=== PATIENT | male | born 1965 | race Hispanic/Latino ===

== ENCOUNTER 2022-07-20 14:01 | Inpatient (IN) | payer OTHER ==
[~2022-07-20] VITALS: Ht 152.4 cm; Wt 63.8 kg
[2022-07-20 15:27] LABS: BASOPHILS % (AUTO) 0.4 % (0.0-5.0); EOSINOPHILS % (AUTO) 1.9 % (0.0-8.0); HEMATOCRIT 24.6 % (42-54); LYMPHOCYTES % (AUTO) 12.5 % (21.0-51.0); MEAN CORPUSCULAR HEMOGLOBIN 31.9 pg (27.0-33.0); MEAN CORPUSCULAR HGB CONC 33.7 g/dL (32.0-36.0); MEAN CORPUSCULAR VOLUME 94.6 fL (79-99); NEUTROPHILS % (AUTO) 68.5 % (40.0-77.0); PLATELET COUNT (AUTO) 130 K/uL (130-400); RED CELL DISTRIBUTION WIDTH 18.1 % (11.0-15.5)
[2022-07-20 15:38] LABS: CREATININE 1.5 mg/dL (0.5-1.5); POTASSIUM 4.4 mmol/L (3.5-5.1)
[2022-07-20 15:48] LABS: ALBUMIN 1.9 g/dL (3.5-5.0); TOTAL PROTEIN, SERUM 6.2 g/dL (6.0-8.3)
[2022-07-20] MEDS ORDERED: IOHEXOL 350 MG/ML 100ML INFUS..BTL IV ONE (16:24)
[2022-07-20] MEDS ORDERED: MORPHINE 2 MG SYG IV PRN (19:30)
[2022-07-20] MEDS ORDERED: ONDANSETRON 4MG INJ IV PRN (19:30)
[2022-07-20] MEDS ORDERED: ACETAMINOPHEN 325 MG TAB PO PRN ×2 (19:30)
[2022-07-20] MEDS ORDERED: HYDROMORPHONE 1 MG INJ IV PRN (19:30)
[2022-07-20] MEDS: LACTULOSE 20 GM/30 ML UDCUP PO SCH (19:31)
[2022-07-20] MEDS ORDERED: PANTOPRAZOLE 40 MG/VIAL IVP SCH (21:00)
[2022-07-20] MEDS ORDERED: FUROSEMIDE 20MG VIAL IV SCH (23:30)
[2022-07-20 23:56] LABS: HEMOGLOBIN A1C 4.1 % (4.0-6.0)
[2022-07-21] VITALS (13 sets, daily range): BP systolic 91–109; BP diastolic 57–70
[2022-07-21] MEDS: MULTIVITAMIN TABLET PO SCH ×2 (01:12→22:58)
[2022-07-21] MEDS: LACTULOSE 20 GM/30 ML UDCUP PO SCH ×4 (01:12→19:31)
[2022-07-21 04:37] LABS: BASOPHILS % (AUTO) 0.4 % (0.0-5.0); EOSINOPHILS % (AUTO) 2.8 % (0.0-8.0); LYMPHOCYTES % (AUTO) 21.1 % (21.0-51.0); MEAN CORPUSCULAR HEMOGLOBIN 32.7 pg (27.0-33.0); MEAN CORPUSCULAR VOLUME 96.3 fL (79-99); MONOCYTES % (AUTO) 13.1 % (3.0-13.0); NEUTROPHILS % (AUTO) 61.8 % (40.0-77.0); PLATELET COUNT (AUTO) 83 K/uL (130-400); RED BLOOD CELL COUNT(AUTO) 2.14 MIL/uL (4.50-6.20); RED CELL DISTRIBUTION WIDTH 17.6 % (11.0-15.5)
[2022-07-21 04:47] LABS: HEMATOCRIT 20.6 % (42-54)
[2022-07-21 05:08] LABS: ALANINE AMINOTRANSFERASE 21 U/L (12-78); ALBUMIN 1.4 g/dL (3.5-5.0); ASPARTATE AMINOTRANSFERASE 27 U/L (10-37); CARBON DIOXIDE 21 mmol/L (21-32); CHLORIDE 99 mmol/L (101-111); CREATININE 1.2 mg/dL (0.5-1.5); GLOMERULAR FILTR. RATE CALC 66 mL/min (>60); GLUCOSE,RANDOM 74 mg/dL (70-105); POTASSIUM 3.9 mmol/L (3.5-5.1); SODIUM SERUM 126 mmol/L (136-145); UREA NITROGEN, BLOOD 14 mg/dL (7-18)
[2022-07-21] MEDS: PANTOPRAZOLE 40 MG/VIAL IVP SCH ×2 (09:00→19:32)
[2022-07-21 09:05] LABS: INR 1.3 (0.85-1.15)
[2022-07-21 09:06] LABS: PARTIAL THROMBOPLASTIN TIME 35.9 SEC (26.3-35.5)
[2022-07-21] MEDS: FUROSEMIDE 20MG VIAL IV SCH ×2 (15:53→22:57)
[2022-07-21] MEDS: SPIRONOLACTONE 25 MG TAB PO SCH ×2 (15:53→19:31)
[2022-07-21 16:33] LABS: SPECIMENTYPE,BODY FLUID ASCITES
[2022-07-21 16:34] LABS: APPEARANCE BODY FLUID SLIGHTLY CLOUDY (CLEAR); COLOR,BODY FLUID YELLOW (LT YELLOW); TOTAL VOLUME,BODY FLUID 3500 mL
[2022-07-21 16:35] LABS: BODY FLUID WBC 528 /cu. mm.
[2022-07-21 16:36] LABS: BODY FLUID RBC 322 /cu. mm.
[2022-07-21 18:27] LABS: BF LYMPHOCYTE 4 %; BF MONOCYTE 6 %; BF OTHER CELLS 2
[2022-07-22] MEDS: LACTULOSE 20 GM/30 ML UDCUP PO SCH ×2 (01:30→08:23)
[2022-07-22 03:40] VITALS: BP 105/67
[2022-07-22 03:59] LABS: BASOPHILS % (AUTO) 0.4 % (0.0-5.0); EOSINOPHILS % (AUTO) 3.4 % (0.0-8.0); HEMATOCRIT 24.3 % (42-54); LYMPHOCYTES % (AUTO) 28.4 % (21.0-51.0); MEAN CORPUSCULAR HEMOGLOBIN 31.2 pg (27.0-33.0); MEAN CORPUSCULAR HGB CONC 34.2 g/dL (32.0-36.0); MEAN CORPUSCULAR VOLUME 91.4 fL (79-99); MONOCYTES % (AUTO) 13.8 % (3.0-13.0); NEUTROPHILS % (AUTO) 53.4 % (40.0-77.0); PLATELET COUNT (AUTO) 103 K/uL (130-400); RED BLOOD CELL COUNT(AUTO) 2.66 MIL/uL (4.50-6.20); RED CELL DISTRIBUTION WIDTH 18.6 % (11.0-15.5)
[2022-07-22 04:19] LABS: ALBUMIN 1.5 g/dL (3.5-5.0); CREATININE 1.2 mg/dL (0.5-1.5); MAGNESIUM 1.8 mg/dL (1.80-2.40); POTASSIUM 3.9 mmol/L (3.5-5.1); TOTAL PROTEIN, SERUM 5.3 g/dL (6.0-8.3)
[2022-07-22 08:00] VITALS: BP 112/75
[2022-07-22] MEDS: PANTOPRAZOLE 40 MG/VIAL IVP SCH (08:23)
[2022-07-22] MEDS: SPIRONOLACTONE 25 MG TAB PO SCH (08:23)
== END 2022-07-22 10:20 | disposition home or self-care (01) | DRG 432 ==
LOC: EDH 14:01 → EDHIP 14:02 → 4AH 07-21 01:56
PROVIDERS: ADMIT Hospitalist; ATTEND Hospitalist
PROC: 30233N1 Transfusion of Nonautologous Red Blood Cells into Peripheral Vein, Percutaneous Approach (ICD-10-PCS; principal; 2022-07-21)
PROC: 0W9G3ZZ Drainage of Peritoneal Cavity, Percutaneous Approach (ICD-10-PCS; 2022-07-21)
DX: K70.31 Alcoholic cirrhosis of liver with ascites (principal); E43 Unspecified severe protein-calorie malnutrition; E87.1 Hypo-osmolality and hyponatremia; E87.70 Fluid overload, unspecified; D64.9 Anemia, unspecified; D69.6 Thrombocytopenia, unspecified; R62.7 Adult failure to thrive; Z79.899 Other long term (current) drug therapy; Z91.14 Patient's other noncompliance with medication regimen; Z68.27 Body mass index [BMI] 27.0-27.9, adult
CPT/HCPCS: 36415; 49083; 74177; 80053; 82140; 82746; 83036; 83690; 83735; 84425; 84484; 85025; 85610; 85730; 86850; 86900; 86901; 86923; 87071; 87205; 89051; C1729; C9113; G0378; J1940; P9016; Q9967

== ENCOUNTER 2022-08-11 12:14 | Emergency (ER) | payer OTHER ==
[~2022-08-11] VITALS: Ht 162.6 cm; Wt 64.4 kg
[2022-08-11 13:50] LABS: BASOPHILS % (AUTO) 0.6 % (0.0-5.0); EOSINOPHILS % (AUTO) 3.7 % (0.0-8.0); HEMATOCRIT 24.9 % (42-54); LYMPHOCYTES % (AUTO) 16.1 % (21.0-51.0); MEAN CORPUSCULAR HEMOGLOBIN 33.5 pg (27.0-33.0); MEAN CORPUSCULAR HGB CONC 33.3 g/dL (32.0-36.0); MEAN CORPUSCULAR VOLUME 100.4 fL (79-99); MONOCYTES % (AUTO) 16.3 % (3.0-13.0); NEUTROPHILS % (AUTO) 62.9 % (40.0-77.0); PLATELET COUNT (AUTO) 86 K/uL (130-400); RED BLOOD CELL COUNT(AUTO) 2.48 MIL/uL (4.50-6.20); RED CELL DISTRIBUTION WIDTH 19.9 % (11.0-15.5); WHITE BLOOD COUNT (AUTO) 5.5 K/uL (4.8-10.8)
[2022-08-11 14:01] LABS: INR 1.17 (0.85-1.15); PROTHROMBIN TIME 12.6 SEC (9.6-11.6)
[2022-08-11 14:10] LABS: CREATININE 1.4 mg/dL (0.5-1.5)
[2022-08-11 14:15] LABS: ALBUMIN 2.2 g/dL (3.5-5.0); TOTAL PROTEIN, SERUM 5.8 g/dL (6.0-8.3)
[2022-08-11 14:58] LABS: APPEARANCE,URINE CLOUDY (CLEAR); BILIRUBIN,URINE NEGATIVE (NEGATIVE); COLOR,URINE YELLOW (YELLOW); GLUCOSE, URINE (UA) NEGATIVE (NEGATIVE); KETONES,URINE NEGATIVE (NEGATIVE); LEUKOCYTE ESTERASE ,URINE 25 Leu/uL (NEGATIVE); NITRATE,URINE NEGATIVE (NEGATIVE); OCCULT BLOOD,URINE LARGE (NEGATIVE); PROTEIN,URINE 20 mg/dL (NEGATIVE); UROBILINOGEN,URINE 0.2 mg/dL (0.2-1.0)
[2022-08-11 15:03] LABS: BACTERIA,URINE MANY /HPF (None Seen); MUCUS,URINE RARE LPF (None Seen); RBC,URINE 51-100 /HPF (0-1); SQUAMOUS EPITHELIAL CELL,UR RARE /HPF (0-2)
[2022-08-11] MEDS ORDERED: CIPR-279 PO (15:49)
[2022-08-11 16:17] VITALS: BP 101/62
== END 2022-08-11 16:18 | disposition home or self-care (01) ==
LOC: EDH 12:14
DX: K74.60 Unspecified cirrhosis of liver (principal); R18.8 Other ascites; Z98.890 Other specified postprocedural states
CPT/HCPCS: 36415; 80053; 81001; 85025; 85610; 85730; 87077; 87088; 87186

== ENCOUNTER 2022-08-18 12:30 | Emergency (ER) | payer OTHER ==
[~2022-08-18] VITALS: Ht 162.6 cm; Wt 64.4 kg
[~2022-08-18 12:30] MED LIST: CIPR-279 PO
[2022-08-18 15:32] LABS: EOSINOPHILS % (AUTO) 4.1 % (0.0-8.0); HEMATOCRIT 23.2 % (42-54); LYMPHOCYTES % (AUTO) 19.8 % (21.0-51.0); MEAN CORPUSCULAR HEMOGLOBIN 33.5 pg (27.0-33.0); MEAN CORPUSCULAR HGB CONC 33.2 g/dL (32.0-36.0); MEAN CORPUSCULAR VOLUME 100.9 fL (79-99); MONOCYTES % (AUTO) 12.7 % (3.0-13.0); PLATELET COUNT (AUTO) 116 K/uL (130-400); WHITE BLOOD COUNT (AUTO) 5.1 K/uL (4.8-10.8)
[2022-08-18 15:44] LABS: INR 1.26 (0.85-1.15); PROTHROMBIN TIME 13.6 SEC (9.6-11.6)
[2022-08-18 15:46] LABS: PARTIAL THROMBOPLASTIN TIME 30.8 SEC (26.3-35.5)
[2022-08-18 16:00] LABS: CREATININE 1.3 mg/dL (0.5-1.5); POTASSIUM 3.5 mmol/L (3.5-5.1)
[2022-08-18 16:05] LABS: TOTAL PROTEIN, SERUM 5.4 g/dL (6.0-8.3)
[2022-08-18] MEDS ORDERED: LIDOCAINE HCL 1% 20 ML VIAL ONE (17:09)
[2022-08-18] MEDS ORDERED: ALBUMIN (HUMAN) 25% 100 ML IV STA (17:13)
[2022-08-18 18:26] VITALS: BP 124/62
== END 2022-08-18 19:22 | disposition home or self-care (01) ==
LOC: EDH 12:30
DX: R10.9 Unspecified abdominal pain (principal); Z98.890 Other specified postprocedural states
CPT/HCPCS: 99285; 96374; 76705; 71045; 84484; 80053; 82140; 85025; 85610; 85730; 36415; P9046

== ENCOUNTER 2024-08-17 09:24 | Inpatient (IN) | payer OTHER ==
[~2024-08-17] VITALS: Ht 162.6 cm; Wt 84.5 kg
[2024-08-17 10:07] LABS: BASOPHILS # (AUTO) 0.03 K/uL (0.00-0.20); BASOPHILS % (AUTO) 0.8 % (0.0-5.0); EOSINOPHILS # (AUTO) 0.15 K/uL (0.00-0.70); EOSINOPHILS % (AUTO) 4.2 % (0.0-8.0); HEMATOCRIT 24.4 % (42-54); IMMATURE GRANULOCYTE ABSOLUTE 0.01 K/uL (0-1); LYMPHOCYTES # (AUTO) 1.3 K/uL (1.0-4.8); LYMPHOCYTES % (AUTO) 35.7 % (21.0-51.0); MEAN CORPUSCULAR HEMOGLOBIN 34.7 pg (27.0-33.0); MEAN CORPUSCULAR HGB CONC 35.2 g/dL (32.0-36.0); MEAN CORPUSCULAR VOLUME 98.4 fL (79-99); MONOCYTES # (AUTO) 0.4 K/uL (0.1-1.0); MONOCYTES % (AUTO) 11.6 % (3.0-13.0); NEUTROPHILS # (AUTO) 1.7 K/uL (1.8-7.7); NEUTROPHILS % (AUTO) 47.4 % (40.0-77.0); PLATELET COUNT (AUTO) 97 K/uL (130-400); RED BLOOD CELL COUNT(AUTO) 2.48 MIL/uL (4.50-6.20); WHITE BLOOD COUNT (AUTO) 3.6 K/uL (4.8-10.8)
[2024-08-17 10:16] LABS: CREATININE 1.4 mg/dL (0.5-1.3); POTASSIUM 3.3 mmol/L (3.5-5.1)
[2024-08-17 10:17] LABS: INR 1.1 (0.85-1.15); PROTHROMBIN TIME 12.2 SEC (9.6-11.6)
[2024-08-17 10:19] LABS: PARTIAL THROMBOPLASTIN TIME 29.7 SEC (26.3-35.5)
--- NOTE | 2024-08-17 10:29 | NUR ---
TROP-89, STEPHAND MADE AWARE NO FURTHER ORDERS
--- NOTE | 2024-08-17 11:32 | ERN ---
General Chief Complaint: Abdominal Pain Stated Complaint: ABD PAIN Time Seen by MD: 09:28 History of Present Illness Initial Comments 59-year-old male came in for distended abdomen secondary to ascites. Patient otherwise has no concerns. Allergies: Coded Allergies: No Known Allergies (Unverified Allergy, Unknown, 07/20/22) Home Meds Active Scripts Ciprofloxacin HCl (Cipro) 250 Mg Tablet, 250 MG PO BID for 7 Days, #14 TAB Prov:MAURICE DIAMOND MD 08/11/22 Past Medical History Past Medical History: CAD, Constipation, High Cholesterol, Heart Disease, Hypertension, Hypothyroid, Liver Disease Medical History Other: CIRRHOSIS Past Surgical History: Other Surgical History Other: UMBILICAL HERNIA REPAIR Social History Social History: Lives with family ROS Dictation CONSTITUTIONAL: Negative except for HPI HEAD/FACE: Negative except for HPI EENT: Negative except for HPI RESPIRATORY: Negative except for HPI GASTROINTESTINAL/ABDOMINAL: Negative except for HPI GENITOURINARY: Negative except for HPI MUSCULOSKELETAL: Negative except for HPI INTEGUMENTARY: Negative except for HPI NEUROLOGICAL/PSYCH: Negative except for HPI HEMATOLOGIC/LYMPHATIC: Negative except for HPI All Systems Negative, Except as noted above. 13 point review of systems assessed and all negative except for above. Physical Exam Physical Exam Dictation Vital Signs reviewed General Appearance: Alert, oriented x 3, no acute distress, well developed, nourished. Head and Face: non-traumatic. Eyes: PERRL, pink conjunctivas, eyelid no trauma, anterior chamber with arcus senilis. Ears: Pinnas intact and no signs of trauma or erythema ear canals clear and no discharge TM no erythema Nose: No discharge, no bleeding. Oropharynx: Mouth normal, tongue pink, pharynx clear,no erythema, tonsils no exudates, no abscesses noted, mucous membrane moist Neck: Supple, non-tender, no thyromegaly, no masses, no JVD, no bruits Breast:Deferred Chest:No tenderness, no crepitus, no paradoxical movement, no retractions Lungs:Clear, well-ventilated, symmetric, no rales, no wheezing, no rhonchi, no stridor, good breath sounds bilaterally Heart: Regular rate, regular rhythm, no murmur, no gallops Vascular: no peripheral edema, Abdomen: Soft, positive bowel sounds, nondistended, no guarding, nontender, no rebound, no masses no hepatomegaly, no splenomegaly, no Macedo's sign, no hernias. Rectal: Deferred Genital: Deferred Neurological: Normal speech, motor function intact, sensory function intact Musculoskeletal: Neck nontender, full range of motion, back nontender, full range of motion, Extremities: nontender, full range of motion Skin: Color pink, dry, no turgor, no rash, no lacerations, no abrasions, no contusions. Lymphatic: Deferred Results Laboratory and Microbiology Lab and Micro Result Laboratory Tests Test 08/17/24 10:00 White Blood Count 3.6 K/uL (4.8-10.8) L Red Blood Count 2.48 MIL/uL (4.50-6.20) L Hemoglobin 8.6 g/dL (14.0-18.0) L Hematocrit 24.4 % (42-54) L Mean Corpuscular Volume 98.4 fL (79-99) Mean Corpuscular Hemoglobin 34.7 pg (27.0-33.0) H Mean Corpuscular Hemoglobin Concent 35.2 g/dL (32.0-36.0) Red Cell Distribution Width 15.0 % (11.0-15.5) Platelet Count 97 K/uL (130-400) L Mean Platelet Volume 9.8 fL (7.5-10.5) Immature Granulocyte % (Auto) 0.3 % (0-1) Neutrophils (%) (Auto) 47.4 % (40.0-77.0) Lymphocytes (%) (Auto) 35.7 % (21.0-51.0) Monocytes (%) (Auto) 11.6 % (3.0-13.0) Eosinophils (%) (Auto) 4.2 % (0.0-8.0) Basophils (%) (Auto) 0.8 % (0.0-5.0) Neutrophils # (Auto) 1.7 K/uL (1.8-7.7) L Lymphocytes # (Auto) 1.3 K/uL (1.0-4.8) Monocytes # (Auto) 0.4 K/uL (0.1-1.0) Eosinophils # (Auto) 0.15 K/uL (0.00-0.70) Basophils # (Auto) 0.03 K/uL (0.00-0.20) Absolute Immature Granulocyte (auto 0.01 K/uL (0-1) Nucleated Red Blood Cells 0.0 % (0.0-0.19) Sodium Level 144 mmol/L (136-145) Potassium Level 3.3 mmol/L (3.5-5.1) L Chloride Level 112 mmol/L (101-111) H Carbon Dioxide Level 29 mmol/L (21-32) Blood Urea Nitrogen 19 mg/dL (7-18) H Creatinine 1.4 mg/dL (0.5-1.3) H Glomerular Filtration Rate Calc 58 mL/min (>90) Random Glucose 94 mg/dL (70-105) Total Calcium 7.5 mg/dL (8.5-10.1) L Ammonia 42 umol/L (11-32) H Troponin I High Sensitivity 89 ng/L (4-75) *H MDM MDM: Differential diagnosis: Rationale: Tests considered and ordered secondary to shared decision making include: Previous outside records reviewed: Old ER visits. Risk of complication and/or morbidity or mortality of patient management: None Medications-Per medication reconciliation Need for hospitalization: Patient does meet criteria for hospitalization. Need for emergency major/minor surgery: No There are no social concerns with this patient. Prescription drug management Prescriptions will include symptomatic care Patient's prior external medical records from other ER visits were reviewed by me as indicated. Prior testing and results from previous visits were reviewed. Prior tests were taken into account with medical decision making and resource utilization, independent historian/historians were used to obtain complete medical history. I independently interpreted the test that were performed, results were reviewed by me and considered findings on radiology if ordered. Medical management and examination interpretation discussions were had by me with other qualified healthcare professionals as indicated for the patient's care. ED Course Orders Procedure Category Date Status Time Cbc With Differential LAB 08/17/24 Complete 09:37 Basic Metabolic Panel LAB 08/17/24 Complete 09:37 Pt And Ptt LAB 08/17/24 In Process 09:37 Troponin I High LAB 08/17/24 Complete Sensitivity 09:37 Ammonia LAB 08/17/24 Complete 09:57 12 Lead Ekg Tracing- EKG 08/17/24 Logged Technical 10:31 Vital Signs Date Time Temp Pulse Resp B/P (MAP) Pulse Ox O2 Delivery O2 Flow Rate FiO2 08/17/24 09:58 98.8 66 14 134/64 100 Room Air* 0 21 08/17/24 09:30 98.8 14 99 Room Air 0 DX & DISP Disposition: Inpatient Departure Impression: Primary Impression: Elevated troponin Additional Impression: Liver cirrhosis Condition: Stable Referrals: NONE (PCP) SCOTTY ROMERO MD Aug 17, 2024 11:32
--- NOTE | 2024-08-17 13:35 | HP ---
[facility] HISTORY AND PHYSICAL Date of Service: Aug 17, 2024 Time of Service: 13:16 HISTORY OF PRESENT ILLNESS: [This is a 59-year-old male with past medical history of alcoholic liver cirrhosis who presented to the emergency department with complaints of stomach bloating, bilateral lower extremity edema associated with shortness of breaths. Patient denies any chest pain or palpitations. Patient stated that we would normally get paracentesis for his liver cirrhosis in the last paracentesis that he had was about three months ago. In the emergency department, his initial vitals checked which showed temperature 98.8, respiratory rate 14, BP 134/64, O2 sat 99% on room air. Laboratory data reviewed, WBC 3.6, HGB 8.6, HCT 24.4, PLT 97, Na 144, K 3.3, Cl 112, CO2 29, BUN 19, Crea 1.4, blood sugar 94. Troponin I 89. Patient was referred to the hospitalist for further evaluation and management for possible paracentesis and cardiology consultation for elevated troponin rule out NSTEMI.] REVIEW OF SYSTEMS CONSTITUTIONAL: Denies fevers, chills, or night sweats. No unintentional weight loss reported. NEUROLOGICAL: Denies headache, amaurosis fugax, motor weakness, sensory deficit, vertigo/spinning sensation, gait abnormalities, or tremors. ENT: No hearing loss, otalgia, otorrhea, rhinitis, rhinorrhea, hoarseness, or sore throat. CARDIOVASCULAR: Denies any exertional angina, dyspnea on exertion, orthopnea, p aroxysmal nocturnal dyspnea, palpitations, life-threatening arrhythmias, claudication. PULMONARY: Denies any shortness of breath, cough, phlegm/sputum, hemoptysis, pleuritic chest pain. SLEEP: Denies morning headaches, daytime somnolence or napping. Denies difficulty falling asleep, staying asleep, waking from sleep. Denies knowledge of snoring. GASTROINTESTINAL: Denies any type of dysphagia to either liquids or solids. Denies nausea, vomiting, pyrosis, early satiety, abdominal pain, diarrhea, constipation, or changes in stool consistency or caliber. Denies coffee-ground emesis, hematemesis, hematochezia, or melanotic stools. Reported of feeling bloated. GENITOURINARY: Denies frequency, urgency, nocturia, hematuria or incontinence (Storage/Irritative symptoms.) Low urinary stream, straining to void, urinary intermittency or hesitancy, splitting of the voiding stream, terminal dribbling. ENDOCRINOLOGIC: Denies polyuria, polydipsia, polyphagia or heat/cold intolerances. HEMATOLOGIC: Denies thrombophilia/previous clots, or coagulopathy/bleeding disorders. ONCOLOGIC: Denies personal history of malignancy. DERMATOLOGIC: Denies rashes or pruritus. PSYCHIATRIC: Denies any suicidal or homicidal ideation. Denies hallucinations. PAST MEDICAL HISTORY: [Alcoholic liver cirrhosis, overweight BMI 32.6 kg/m2 ] PAST SURGICAL HISTORY: [Hernia repair ] PAST SOCIAL HISTORY: [Denies tobacco, alcohol or illicit drug use ] FAMILY HISTORY: [Noncontributory ] Coded Allergies: No Known Allergies (Unverified Allergy, Unknown, 07/20/22) PHYSICAL EXAM GENERAL APPEARANCE: The patient is awake, alert, and oriented, in no acute cardiopulmonary distress. NEUROLOGICAL: Cranial nerves II-XII grossly intact. Motor is 5/5 in bilateral upper and lower extremities proximal to distal. No sensory deficits. HEENT: Face is symmetric. Pupils are equal and reactive. Extraocular movements are intact. NECK: Supple. No JVD. No thyromegaly. No submental, submandibular, pre- /postauricular, occipital or supraclavicular lymphadenopathy. CHEST: Normal chest expansion. No Telemetry. LUNGS: Diminished bases CARDIOVASCULAR: Regular. S1 and S2 normal. No appreciable rubs, murmurs or gallops. ABDOMEN: Soft, nontender, and distended. There is no rebound, voluntary guarding, or rigidity. : Deferred. No Evangelista. EXTREMITIES: Bilateral lower extremity edema 4+ SKIN: No skin breakdown. Vital Sign (Last 24 Hours) 08/17/24 12:46 Temp 98.1 Pulse 71 Resp 18 B/P (MAP) 149/71 Pulse Ox 100 O2 Delivery Room Air* O2 Flow Rate 0 FiO2 21 LABS: Laboratory: Test 08/17/24 10:00 Range/Units White Blood Count 3.6 L 4.8-10.8 K/uL Red Blood Count 2.48 L 4.50-6.20 MIL/uL Hemoglobin 8.6 L 14.0-18.0 g/dL Hematocrit 24.4 L 42-54 % Mean Corpuscular Volume 98.4 79-99 fL Mean Corpuscular Hemoglobin 34.7 H 27.0-33.0 pg Mean Corpuscular Hemoglobin Concent 35.2 32.0-36.0 g/dL Red Cell Distribution Width 15.0 11.0-15.5 % Platelet Count 97 L 130-400 K/uL Mean Platelet Volume 9.8 7.5-10.5 fL Immature Granulocyte % (Auto) 0.3 0-1 % Neutrophils (%) (Auto) 47.4 40.0-77.0 % Lymphocytes (%) (Auto) 35.7 21.0-51.0 % Monocytes (%) (Auto) 11.6 3.0-13.0 % Eosinophils (%) (Auto) 4.2 0.0-8.0 % Basophils (%) (Auto) 0.8 0.0-5.0 % Neutrophils # (Auto) 1.7 L 1.8-7.7 K/uL Lymphocytes # (Auto) 1.3 1.0-4.8 K/uL Monocytes # (Auto) 0.4 0.1-1.0 K/uL Eosinophils # (Auto) 0.15 0.00-0.70 K/uL Basophils # (Auto) 0.03 0.00-0.20 K/uL Absolute Immature Granulocyte (auto 0.01 0-1 K/uL Nucleated Red Blood Cells 0.0 0.0-0.19 % Prothrombin Time 12.2 H 9.6-11.6 SEC Prothromb Time International Ratio 1.10 0.85-1.15 Activated Partial Thromboplast Time 29.7 26.3-35.5 SEC Sodium Level 144 136-145 mmol/L Potassium Level 3.3 L 3.5-5.1 mmol/L Chloride Level 112 H 101-111 mmol/L Carbon Dioxide Level 29 21-32 mmol/L Blood Urea Nitrogen 19 H 7-18 mg/dL Creatinine 1.4 H 0.5-1.3 mg/dL Glomerular Filtration Rate Calc 58 >90 mL/min Random Glucose 94 70-105 mg/dL Total Calcium 7.5 L 8.5-10.1 mg/dL Ammonia 42 H 11-32 umol/L Troponin I High Sensitivity 89 *H 4-75 ng/L DIAGNOSTICS / RADIOLOGY: [ ] ASSESSMENT: [Ascites, POA Hypokalemia, POA Acute kidney injury, POA Elevated troponin (NSTEMI versus Type II NM 2/2 liver cirrhosis), POA Overweight with BMI 32.6 kg/m2 Hyperammonemia, POA] PLAN: [Admit to medical telemetry floor We will trend troponin x3 We will order 12 lead EKG, 2D echo and stat BNP We will monitor electrolytes, replete as necessary We will give potassium 40 mEq x 1 now and we will order stat magnesium level We will consult Cardiology regarding elevated troponins We will request home medications For now we will start patient on Lasix 20 mg IV q.12 hours We will start patient on aspirin 81 mg daily, we will start beta gera with m etoprolol 12.5 mg p.o. b.i.d., atorvastatin 20 mg at HS We will start lactulose 20 g b.i.d. due to elevated ammonia We will order ultrasound-guided paracentesis GI prophylaxis with famotidine 20 mg p.o. b.i.d. VTE prophylaxis with SCDs Patient is a full code Case discussed with Dr. Virgen, above plan was formulated ADVANCED CARE PLANNING 1. Which of the following were discussed? Hospice Care - Yes / No Therapeutic options - Yes / No Advance Directives - Yes / No Other discussions - 2. Discussed with who? Patient 3. Voluntary nature of this service was explained to the patient? Yes / No 4. Amount of time spent - __20 mins 5. Reviewed by Physician? (if this service was performed by NPP) Yes / No ] ATTESTATION BY PHYSICIAN I have seen and examined the patient. I reviewed the documentation, medical decision making, and treatment plan as noted by the mid-level provider above. I agree with the findings and plan of care. AARON VIRGEN MD, JANICE B AGPCNATASHA Aug 17, 2024 13:35
[2024-08-17 14:00] LABS: MAGNESIUM 1.6 mg/dL (1.80-2.40)
[2024-08-17 14:13] LABS: ALBUMIN 1.5 g/dL (3.5-5.0); BILIRUBIN,DIRECT 0.4 mg/dL (0.0-0.3); BILIRUBIN,TOTAL 1.5 mg/dL (0.2-1.0); TOTAL PROTEIN, SERUM 5.2 g/dL (6.0-8.3)
[2024-08-17 14:26] LABS: HEMOGLOBIN A1C 3.8 % (4.0-6.0)
[2024-08-17] MEDS: furoSEMIDE 20MG VIAL IV SCH (14:35)
[2024-08-17] MEDS: SPIRONOLACTONE 25 MG TAB PO ONE (14:35)
[2024-08-17] MEDS: ASPIRIN 81MG CHEW TAB PO ONE (14:35)
[2024-08-17] MEDS: PoTASSium chloRIDE 20MEQ ER 20 MEQ ERTAB PO ONE (14:35)
--- NOTE | 2024-08-17 16:20 | HMCSR ---
APPROVED REPORT EXAM: Two-dimensional and M-mode echocardiogram with Doppler and color Doppler. INDICATION ICD: Elevated troponin 2D Dimensions RVDd4.5 cmLVEF(%)56.0 (>50%)LVED Vol(simp.)119.0 mL IVSd0.5 (0.7-1.1cm)FS(%)30 %LVES Vol(simp.)48.1 mL LVDd5.4 (3.8-5.6cm)LA (2D)5.6 (1.6-4.0cm)LVEF(%, simp.)60 % PWd0.8 (0.7-1.1cm)Ao Root(2D)3.3 (2.0-3.7cm)LA ESV INDEX (4CH)50.80 mL/m2 IVSs1.0 cmLVOT diam2.1 (1.8-2.4cm)LA ESV INDEX (2CH)50.80 mL/m2 LVDs3.8 (2.5-4.0cm)LA ESV INDEX (BP)55.00 mL/m2 PWs1.1 cm Deformation Strain Apical 422.0 % Apical 228.0 % Apical 327.0 % Global Ogwasv51.0 % Aortic Valve AoV VTI0.5 mAo Mean GR8.0 mmHgLVOT VTI0.28 m ANDRES (VMAX)2.1 cm2AVA (VTI) 2.1 cm2 Mitral Valve MV E Vmax94.6 cm/sDECEL Aaeo353 ms MV A Vmax99.9 cm/sP 1/2 T82 ms E/A ratio0.9MVA (PHT)2.7 cm2 TDI E/E' Qwjjgb10.8E/E' Pivmwpo89.0 Medial E' Peak V7.40 cm/sLateral E' Peak V7.30 cm/s Pulmonary Valve PV VTI0.25 mPV Mean GR3 mmHg Tricuspid Valve TR Vmax2.2 m/sRAP (EST) 8 lxZcYEHX94.5 mmHg TR Peak GR19.5 mmHg Left Ventricle The left ventricle is normal sized. GLS -25.0%. There is normal LV segmental wall motion. Normal LV w all thickness. The LVEF is > 55%. Indeterminate diastolic dysfunction. Right Ventricle The right ventricle is moderately dilated. The right ventricular systolic function is normal. Atria The left atrium is severely dilated with an LA ESV index is 55 mL/m. The right atrium is moderately dilated. Aortic Valve Aortic valve is trileaflet with mild to moderate sclerosis of the leaflets. Trivial aortic regurgitat ion is present. There is no significant aortic valvular stenosis. AV Vmax is 2 m/s. AV peak gradient is 16 mmHg; AV mean gradient is 8 mmHg. Mitral Valve Mild posterior annular calcification noted. Mitral valve leaflets open well. There is no mitral valve regurgitation noted. There is no mitral valve stenosis. Tricuspid Valve The tricuspid valve is normal in structure. There is trace of tricuspid valve regurgitation noted. Pulmonic Valve The pulmonary valve is normal in structure. There is no pulmonic valvular regurgitation. Great Vessels The aortic root is normal in size. The IVC is normal in size and collapses <50% with inspiration. Pericardium There is no pericardial effusion. Other Information Quality : Fair Conclusion The left atrium is severely dilated with an LA ESV index is 55 mL/m. The left ventricle is normal sized. Normal LV wall thickness. GLS -25.0%. There is normal LV segmental wall motion. The LVEF is > 55%. Mild posterior annular calcification noted. Mitral valve leaflets open well. There is no mitral valve stenosis. There is no significant aortic valvular stenosis. AV Vmax is 2 m/s. AV peak gradient is 16 mmHg; AV mean gradient is 8 mmHg.
--- NOTE | 2024-08-17 16:28 | NUR ---
TROP-90 ERMD MADE AWARE
--- NOTE | 2024-08-17 16:57 | CONS ---
[facility] CARDIOLOGY CONSULTATION REPORT Date Patient Seen: Aug 17, 2024 Time of Visit: 16:38 Requesting Physician: Scott Lozoya MD Reason for Consultation: Elevated troponin History of Present Illness: This is a 59-year-old Latin-Omani male (previously hospitalized under the name Ricci Chavez MR#[id number]) with a past medical history of alcoholic liver cirrhosis, hypertension, intermittent ascites with intermittent paracentesis, chronic anemia, morbid obesity, prior bacterial peritonitis (March 05, 2024) and due to suspicious of endocarditis at that time, he was treated with IV antibiotics and continued with outpatient IV antibiotics. The patient presented to the emergency department on this occasion with increasing abdominal girth and periumbilical discomfort with the associated lower extremity edema. His last paracentesis was about 3 months ago and usually has large volume paracentesis done. He did not bring his home medications but recalls being on a diuretic which he felt was not improving his condition and therefore presented to the ER for further evaluation. He offered no complaints of chest pain and no orthopnea or PND but in the ER he had troponins drawn which initially was 89, repeat of 110 and repeat of 90, cardiology consult was requested. An EKG in the emergency department demonstrates normal sinus rhythm with a heart rate of 65 and low voltage in leads 3 and AVF with QS complexes noted in leads 3 and AVF consistent with possible prior inferior infarct. His other labs were remarkable for a protime of 22.2, INR 1.1, hemoglobin 8.6, hematocrit of 24.4 and a platelet count of 97. WBC of 3.6. Sodium 144, potassium 3.3, BUN 19 and creatinine of 1.4 with estimated GFR 58. Ammonia level of 42. BNP of 132. Total bilirubin of 1.5, direct bilirubin of 0.4, AST of 69, albumin 1.5 and total protein of 5.2. He offers no symptoms suggestive of angina including chest pain, exertional fatigue and exertional dyspnea, other than exertional dyspnea when he has increased abdominal girth and lower extremity edema. He has undergone a 2D echocardiogram demonstrated normal LV systolic function, no significant valvular pathology and dilated left atrium was noted. Past Medical History: As outlined above and summarized below Cholelithiasis Hypoalbuminemia Morbid obesity Hepatic encephalopathy Past Surgical History: Umbilical hernia repair Family History: Noncontributory Social History: The patient reports he is single, lives with sister Habits: Non smoker. Prior heavy alcohol consumption, quit 4 years ago. Denies illicit drug use Home Meds: Pending reconciliation, patient did not bring his home meds He admits to taking lactulose 30 mL q.i.d. with about 2-3 bowel movements per day Review of Systems: CONST: No fever, fatigue, increased weight gain but unable to quantify amount. EYES: No recent vision problems. ENT: No congestion, ear pain, or sore throat. C/V: No chest pain, palpitations, or edema. RESP: No cough, congestion, wheezing or shortness of breath. GI: Positive for increasing abdominal girth with periumbilical abdominal pain. Last paracentesis was about 3 months ago. Positive for nausea. No vomiting or constipation. 2-3 bowel movements per day on lactulose. : No incontinence or dysuria. SKIN: No rash. NEURO: No headache, focal numbness or weakness, dizziness, or seizures. PSYCH: No depression or anxiety. HEME: No abnormal bruising or bleeding. LYMPH: No swollen glands. Physical Examination: GENERAL: No acute distress. HEAD: Normal with no signs of head trauma. EYES: PERRLA, EOMI, conjunctiva and sclera normal. ENT: Hearing grossly intact, normal oropharynx. NECK: Supple without JVD. There is no tenderness, lymphadenopathy, or masses. No thyromegaly. Normal carotid upstrokes without bruits. LUNGS: Trace rales at the right base, no audible wheezing or rhonchi. HEART: Normal rate and rhythm. Normal S1 and S2 without murmurs, gallop or rub. VASC: Peripheral pulses +2 bilaterally. Plus one pedal edema bilaterally ABD: Abdomen is obese, there is tenderness to the periumbilical area. Bowel sounds are present.. : Not examined LYMPH: No lymphadenopathy noted. EXT: No clubbing. There is +1 pedal edema bilaterally SKIN: No rashes or lesions noted. NEURO: Awake, alert, and oriented x3. No focal sensory or strength deficits noted. Vital Signs (last 8hr) Date Time Temp Pulse Resp B/P (MAP) Pulse Ox O2 Delivery O2 Flow Rate FiO2 08/17/24 16:30 65 10 140/86 98 Room Air* 0 21 08/17/24 15:13 98.1 65 13 125/97 98 Room Air* 0 21 1/1/25 13:39 69 16 142/78 100 Room Air* 0 08/17/24 12:46 98.1 71 18 149/71 100 Room Air* 0 08/17/24 09:58 98.8 66 14 134/64 100 Room Air* 0 08/17/24 09:30 98.8 14 99 Room Air 0 Laboratory: Hematology Labs: Test 08/17/24 10:00 Range/Units White Blood Count 3.6 L 4.8-10.8 K/uL Red Blood Count 2.48 L 4.50-6.20 MIL/uL Hemoglobin 8.6 L 14.0-18.0 g/dL Hematocrit 24.4 L 42-54 % Mean Corpuscular Volume 98.4 79-99 fL Mean Corpuscular Hemoglobin 34.7 H 27.0-33.0 pg Mean Corpuscular Hemoglobin Concent 35.2 32.0-36.0 g/dL Red Cell Distribution Width 15.0 11.0-15.5 % Platelet Count 97 L 130-400 K/uL Mean Platelet Volume 9.8 7.5-10.5 fL Immature Granulocyte % (Auto) 0.3 0-1 % Neutrophils (%) (Auto) 47.4 40.0-77.0 % Lymphocytes (%) (Auto) 35.7 21.0-51.0 % Monocytes (%) (Auto) 11.6 3.0-13.0 % Eosinophils (%) (Auto) 4.2 0.0-8.0 % Basophils (%) (Auto) 0.8 0.0-5.0 % Neutrophils # (Auto) 1.7 L 1.8-7.7 K/uL Lymphocytes # (Auto) 1.3 1.0-4.8 K/uL Monocytes # (Auto) 0.4 0.1-1.0 K/uL Eosinophils # (Auto) 0.15 0.00-0.70 K/uL Basophils # (Auto) 0.03 0.00-0.20 K/uL Absolute Immature Granulocyte (auto 0.01 0-1 K/uL Nucleated Red Blood Cells 0.0 0.0-0.19 % Chemistry Labs: Test 08/17/24 15:48 08/17/24 10:00 Range/Units Troponin I High Sensitivity 90 *H 4-75 ng/L Sodium Level 144 136-145 mmol/L Potassium Level 3.3 L 3.5-5.1 mmol/L Chloride Level 112 H 101-111 mmol/L Carbon Dioxide Level 29 21-32 mmol/L Blood Urea Nitrogen 19 H 7-18 mg/dL Creatinine 1.4 H 0.5-1.3 mg/dL Glomerular Filtration Rate Calc 58 >90 mL/min Random Glucose 94 70-105 mg/dL Hemoglobin A1c 3.8 L 4.0-6.0 % Estimated Average Glucose (eAG) 62 L 70-126 mg/dL Total Calcium 7.5 L 8.5-10.1 mg/dL Magnesium Level 1.60 L 1.80-2.40 mg/dL Total Bilirubin 1.5 H 0.2-1.0 mg/dL Direct Bilirubin 0.4 H 0.0-0.3 mg/dL Aspartate Amino Transf (AST/SGOT) 69 H 10-37 U/L Alanine Aminotransferase (ALT/SGPT) 27 12-78 U/L Alkaline Phosphatase 194 H 50-136 U/L Ammonia 42 H 11-32 umol/L B-Type Natriuretic Peptide 132 H 0-100 pg/mL Total Protein 5.2 L 6.0-8.3 g/dL Albumin 1.5 L 3.5-5.0 g/dL Triglycerides Level 62 30-200 mg/dL Cholesterol Level 150 <200 mg/dL LDL Cholesterol 65 0-99 mg/dL HDL Cholesterol 67 29-71 mg/dL Coagulation Labs: Test 08/17/24 10:00 Range/Units Prothrombin Time 12.2 H 9.6-11.6 SEC Prothromb Time International Ratio 1.10 0.85-1.15 Activated Partial Thromboplast Time 29.7 26.3-35.5 SEC Diagnostics / Radiology: 2D echocardiogram 08/17/2024: Conclusion The left atrium is severely dilated with an LA ESV index is 55 mL/m. The left ventricle is normal sized. Normal LV wall thickness. GLS -25.0%. There is normal LV segmental wall motion. The LVEF is > 55%. Mild posterior annular calcification noted. Mitral valve leaflets open well. There is no mitral valve stenosis. There is no significant aortic valvular stenosis. AV Vmax is 2 m/s. AV peak gradient is 16 mmHg; AV mean gradient is 8 mmHg. Impression and Plan: Alcoholic liver cirrhosis: Ascites: History of paracentesis with last paracentesis 3 months ago: -plans are to proceed with paracentesis in a.m. -continue management per primary team -The patient has been noncompliant with GI follow-up as an outpatient Elevated troponin in a flat pattern, without evidence of an acute coronary syndrome (no chest pain/angina and no acute ischemic EKG changes): LVEF of greater than 55% and no LV wall motion abnormalities on 2D echocardiogram 08/17/2024: -his EKG demonstrates evidence of possible prior old inferior infarct but his 2D echocardiogram demonstrates no wall motion abnormalities -no further specific cardiac workup at this time -cardiology will sign off and re-evaluate upon request Comorbidities: Hypoalbuminemia Thrombocytopenia and anemia in the setting of liver cirrhosis Cholelithiasis Hypertension Morbid obesity PHYSICIAN ATTESTATION OF PHYSICIAN RN APPEALS DOCUMENTATION: I attest that I was physically present for the baez portions of the service and evaluated the patient with the Physician Workgroup Leader, and I reviewed and discussed the case with the Physician Workgroup Leader and made modifications to the Physician Workgroup Leader's findings and plans of care as documented above BRIANA HAYES Aug 17, 2024 16:57 ZAIRE BAILEY MD Aug 17, 2024 17:19
[2024-08-17 17:55] VITALS: BP 131/82; PULSE 68; RESP 16; TEMP 98.1
[2024-08-17 20:00] VITALS: O2SAT 100
[2024-08-17] MEDS: atorVAStatin 20 MG TABLET PO SCH (20:33)
[2024-08-17] MEDS: metoPROLOL tartRATE 25 MG TAB PO SCH (20:33)
[2024-08-17] MEDS: FAMOTIDINE 20MG TAB PO SCH (20:33)
[2024-08-17] MEDS: LACTULOSE 20 GM/30 ML UDCUP PO SCH (20:33)
[2024-08-17 20:35] VITALS: BP 144/78; PULSE 63; RESP 20; TEMP 97.4
--- NOTE | 2024-08-17 21:00 | EKG ---
[facility] Test Date: 2024-08-17 Test Time: 13:11:14 Pat Name: ALVAREZ GREEN Department: [facility] Room: 401 1 Gender: M Recreation Therapy Aide: [id number] : 1965 Requested By: COURTNEY VANEGAS Order Number: [id number] Reading MD: Abelardo Lock Measurements Intervals [place] Rate: 62 P: 59 WI: 167 QRS: -23 QRSD: 97 T: 16 QT: 455 QTc: 463 Interpretive Statements Sinus rhythm Compared to ECG 08/17/2024 10:31:53 No significant changes Electronically Signed On 08-19-2024 12:14:04 [employer]OWBLOWER MECHANIC by Abelardo Lock Please click the below link to view image of tracing.
--- NOTE | 2024-08-17 21:00 | EKG ---
[facility] Test Date: 2024-08-17 Test Time: 10:31:53 Pat Name: ALVAREZ GREEN Department: [facility] Room: 401 1 Gender: M Softball Umpire: [id number] : 1965 Requested By: SCOTTY ROMERO Order Number: [id number] Reading MD: Abelardo Lock Measurements Intervals [place] Rate: 65 P: 49 OK: 175 QRS: -12 QRSD: 89 T: 16 QT: 433 QTc: 452 Interpretive Statements Sinus rhythm No previous ECG available for comparison Electronically Signed On 08-19-2024 12:13:41 PUNCH MACHINE HAND by Abelardo Lock Please click the below link to view image of tracing.
[2024-08-17 23:52] VITALS: BP 141/80; PULSE 61; RESP 18; TEMP 98.1
[2024-08-18] VITALS (14 sets, daily range): BP systolic 87–138; BP diastolic 37–87; PULSE 60–78; RESP 16–18; TEMP 97.9–98.3; O2SAT 99–100
[2024-08-18 03:50] LABS: BASOPHILS # (AUTO) 0.03 K/uL (0.00-0.20); BASOPHILS % (AUTO) 0.9 % (0.0-5.0); EOSINOPHILS # (AUTO) 0.13 K/uL (0.00-0.70); EOSINOPHILS % (AUTO) 3.8 % (0.0-8.0); HEMATOCRIT 24.1 % (42-54); LYMPHOCYTES # (AUTO) 1.2 K/uL (1.0-4.8); LYMPHOCYTES % (AUTO) 35.8 % (21.0-51.0); MEAN CORPUSCULAR HEMOGLOBIN 34.6 pg (27.0-33.0); MEAN CORPUSCULAR VOLUME 101.7 fL (79-99); MONOCYTES # (AUTO) 0.4 K/uL (0.1-1.0); NEUTROPHILS # (AUTO) 1.6 K/uL (1.8-7.7); NEUTROPHILS % (AUTO) 46.5 % (40.0-77.0); PLATELET COUNT (AUTO) 79 K/uL (130-400); RED BLOOD CELL COUNT(AUTO) 2.37 MIL/uL (4.50-6.20); RED CELL DISTRIBUTION WIDTH 15.1 % (11.0-15.5); WHITE BLOOD COUNT (AUTO) 3.4 K/uL (4.8-10.8)
[2024-08-18 04:12] LABS: ALBUMIN 1.2 g/dL (3.5-5.0); BILIRUBIN,DIRECT 0.4 mg/dL (0.0-0.3); BILIRUBIN,TOTAL 1.3 mg/dL (0.2-1.0); CREATININE 1.2 mg/dL (0.5-1.3); POTASSIUM 3.5 mmol/L (3.5-5.1); TOTAL PROTEIN, SERUM 4.3 g/dL (6.0-8.3)
[2024-08-18] MEDS: SPIRONOLACTONE 25 MG TAB PO SCH (09:16)
[2024-08-18] MEDS: ASPIRIN 81MG CHEW TAB PO SCH (09:17)
--- NOTE | 2024-08-18 11:00 | NUR ---
U/S GD PARACENTESIS TOLERATED PROCEDURE. PERFORMED BY DR Felipe BURNETTE. 4.0 LITERS OF YELLOW CLOUDY FLUID REMOVED. PUNCTURE SITE TO RLQ. END OF PROCEDURE AT 1030. DRESSING DRY AND INTACT. REPORT GIVEN TO DRAKE MENA. TRANSPORTED TO [facility] VIA WHEELCHAIR. DENIES PAIN. A&O.
--- NOTE | 2024-08-18 11:30 | NUR ---
PATIENT RETURNED FROM PARACENTESIS. 4L REMOVED PER VERBAL REPORT. PATIENT SHOWING NO S/S OF DISTRESS. POST OP VITALS STARTED. PUNCTURE SITE DRESSINGS CLEAN AND INTACT
[2024-08-18 12:02] LABS: APPEARANCE BODY FLUID SLIGHTLY CLOUDY (CLEAR); COLOR,BODY FLUID YELLOW (LT YELLOW); SPECIMENTYPE,BODY FLUID ASCITES; TOTAL VOLUME,BODY FLUID 4000 mL
[2024-08-18 12:13] LABS: BODY FLUID RBC 55 /cu. mm.; BODY FLUID WBC 73 /cu. mm.
[2024-08-18] MEDS: ALBUMIN HUMAN 25% 200 ML IV SCH (12:19)
--- NOTE | 2024-08-18 12:26 | HMCIMG ---
US ABDOMINAL PARACENTESIS IR REASON: ascites TECHNIQUE: Paracentesis was performed with ultrasound guidance. The puncture site was selected in the Right lower quadrant and overlying skin prepped and draped in a sterile fashion. 1% Xylocaine infiltration was performed. Catheter was placed in the fluid using trocar technique. 4 L were removed. Fluid sample was submitted for laboratory evaluation. The patient showed no evidence of complication during the procedure. IMPRESSION: 1. Ultrasound-guided paracentesis.
--- NOTE | 2024-08-18 13:10 | PN ---
[facility] PROGRESS NOTE Date of Service: Aug 18, 2024 Time of Service: 13:09 SUBJECTIVE: 08/18/24 patient is seen and examined, awake, following commands. BP 150/60, afebrile, saturating normal on room air. Hemoglobin 8.2, hematocrit 241. Ultrasound-guided paracentesis done, removal of 4 L done, tolerated the procedure well. No acute complications noted. REVIEW OF SYSTEMS CONSTITUTIONAL: Denies fevers, chills, or night sweats. No unintentional weight loss reported. NEUROLOGICAL: Denies headache, amaurosis fugax, motor weakness, sensory deficit, vertigo/spinning sensation, gait abnormalities, or tremors. ENT: No hearing loss, otalgia, otorrhea, rhinitis, rhinorrhea, hoarseness, or sore throat. CARDIOVASCULAR: Denies any exertional angina, dyspnea on exertion, orthopnea, paroxysmal nocturnal dyspnea, palpitations, life-threatening arrhythmias, claudication. PULMONARY: Denies any shortness of breath, cough, phlegm/sputum, hemoptysis, pleuritic chest pain. SLEEP: Denies morning headaches, daytime somnolence or napping. Denies difficulty falling asleep, staying asleep, waking from sleep. Denies knowledge of snoring. GASTROINTESTINAL: Denies any type of dysphagia to either liquids or solids. Denies nausea, vomiting, pyrosis, early satiety, abdominal pain, diarrhea, constipation, or changes in stool consistency or caliber. Denies coffee-ground emesis, hematemesis, hematochezia, or melanotic stools. Reported of feeling bloated. GENITOURINARY: Denies frequency, urgency, nocturia, hematuria or incontinence (Storage/Irritative symptoms.) Low urinary stream, straining to void, urinary intermittency or hesitancy, splitting of the voiding stream, terminal dribbling. ENDOCRINOLOGIC: Denies polyuria, polydipsia, polyphagia or heat/cold intolerances. HEMATOLOGIC: Denies thrombophilia/previous clots, or coagulopathy/bleeding disorders. ONCOLOGIC: Denies personal history of malignancy. DERMATOLOGIC: Denies rashes or pruritus. PSYCHIATRIC: Denies any suicidal or homicidal ideation. Denies hallucinations. PHYSICAL EXAM GENERAL APPEARANCE: The patient is awake, alert, and oriented, in no acute cardiopulmonary distress. NEUROLOGICAL: Cranial nerves II-XII grossly intact. Motor is 5/5 in bilateral upper and lower extremities proximal to distal. No sensory deficits. HEENT: Face is symmetric. Pupils are equal and reactive. Extraocular movements are intact. NECK: Supple. No JVD. No thyromegaly. No submental, submandibular, pre- /postauricular, occipital or supraclavicular lymphadenopathy. CHEST: Normal chest expansion. No Telemetry. LUNGS: Diminished bases CARDIOVASCULAR: Regular. S1 and S2 normal. No appreciable rubs, murmurs or gallops. ABDOMEN: Soft, nontender, and distended. There is no rebound, voluntary guarding, or rigidity. : Deferred. No Evangelista. EXTREMITIES: Bilateral lower extremity edema 4+ SKIN: No skin breakdown. Vital Signs (last 8hr) Date Time Temp Pulse Resp B/P (MAP) Pulse Ox O2 Delivery O2 Flow Rate FiO2 08/18/24 12:15 97.9 68 18 115/60 100 Room Air 08/18/24 12:00 97.9 60 18 111/58 100 Room Air 08/18/24 11:45 97.9 62 18 131/78 100 Room Air 08/18/24 11:30 97.9 62 16 138/78 100 Room Air 08/18/24 08:00 100 Room Air* 0 21 08/18/24 08:00 98.2 64 18 129/87 100 Room Air LABS: Laboratory: Test 08/18/24 10:20 08/18/24 03:35 08/17/24 15:48 08/17/24 10:00 Range/Units Body Fluid Source ASCITES Body Fluid Volume 4000 mL Body Fluid Color YELLOW LT YELLOW Body Fluid Supernatant Appearance SLIGHTLY CLOUDY CLEAR Body Fluid WBC 73 /cu. mm. Body Fluid RBC 55 /cu. mm. White Blood Count 3.4 L 4.8-10.8 K/uL Red Blood Count 2.37 L 4.50-6.20 MIL/uL Hemoglobin 8.2 L 14.0-18.0 g/dL Hematocrit 24.1 L 42-54 % Mean Corpuscular Volume 101.7 H 79-99 fL Mean Corpuscular Hemoglobin 34.6 H 27.0-33.0 pg Mean Corpuscular Hemoglobin Concent 34.0 32.0-36.0 g/dL Red Cell Distribution Width 15.1 11.0-15.5 % Platelet Count 79 L 130-400 K/uL Mean Platelet Volume 9.6 7.5-10.5 fL Immature Granulocyte % (Auto) 0.0 0-1 % Neutrophils (%) (Auto) 46.5 40.0-77.0 % Lymphocytes (%) (Auto) 35.8 21.0-51.0 % Monocytes (%) (Auto) 13.0 3.0-13.0 % Eosinophils (%) (Auto) 3.8 0.0-8.0 % Basophils (%) (Auto) 0.9 0.0-5.0 % Neutrophils # (Auto) 1.6 L 1.8-7.7 K/uL Lymphocytes # (Auto) 1.2 1.0-4.8 K/uL Monocytes # (Auto) 0.4 0.1-1.0 K/uL Eosinophils # (Auto) 0.13 0.00-0.70 K/uL Basophils # (Auto) 0.03 0.00-0.20 K/uL Absolute Immature Granulocyte (auto 0.00 0-1 K/uL Nucleated Red Blood Cells 0.0 0.0-0.19 % Sodium Level 146 H 136-145 mmol/L Potassium Level 3.5 3.5-5.1 mmol/L Chloride Level 113 H 101-111 mmol/L Carbon Dioxide Level 27 21-32 mmol/L Blood Urea Nitrogen 18 7-18 mg/dL Creatinine 1.2 0.5-1.3 mg/dL Glomerular Filtration Rate Calc 69 >90 mL/min Random Glucose 81 70-105 mg/dL Total Calcium 7.4 L 8.5-10.1 mg/dL Total Bilirubin 1.3 H 0.2-1.0 mg/dL Direct Bilirubin 0.4 H 0.0-0.3 mg/dL Aspartate Amino Transf (AST/SGOT) 54 H 10-37 U/L Alanine Aminotransferase (ALT/SGPT) 22 12-78 U/L Alkaline Phosphatase 147 H 50-136 U/L Total Protein 4.3 L 6.0-8.3 g/dL Albumin 1.2 L 3.5-5.0 g/dL Troponin I High Sensitivity 90 *H 4-75 ng/L Prothrombin Time 12.2 H 9.6-11.6 SEC Prothromb Time International Ratio 1.10 0.85-1.15 Activated Partial Thromboplast Time 29.7 26.3-35.5 SEC Hemoglobin A1c 3.8 L 4.0-6.0 % Estimated Average Glucose (eAG) 62 L 70-126 mg/dL Magnesium Level 1.60 L 1.80-2.40 mg/dL Ammonia 42 H 11-32 umol/L B-Type Natriuretic Peptide 132 H 0-100 pg/mL Triglycerides Level 62 30-200 mg/dL Cholesterol Level 150 <200 mg/dL LDL Cholesterol 65 0-99 mg/dL HDL Cholesterol 67 29-71 mg/dL Current Medications Medications (Trade) Dose Ordered Sig/Conrado Route PRN Reason Start Time Stop Time Status Last Admin Dose Admin Albumin Human 200 ml @ 0 mls/hr AD IV 08/18/24 11:00 08/20/24 10:59 08/18/24 12:19 0 MLS/HR Aspirin (Aspirin 81mg Chew Tab) 81 mg DAILY PO 08/18/24 09:00 09/17/24 08:59 08/18/24 09:17 81 MG Atorvastatin Calcium (LIPItor 20MG) 20 mg HS PO 08/17/24 21:00 09/16/24 20:59 08/17/24 20:33 20 MG Famotidine (Pepcid 20mg Tab) 20 mg Q24H PO 08/17/24 21:00 09/16/24 20:59 08/17/24 20:33 20 MG Furosemide (LASix 20MG VIAL) 20 mg Q12H IV 08/17/24 13:30 09/16/24 13:29 08/18/24 00:47 20 MG Lactulose (Constulose 20gm/ 30ml Udcup) 20 gm BID PO 08/17/24 21:00 09/16/24 20:59 08/18/24 09:17 20 GM Metoprolol Tartrate (loprESSOR) 12.5 mg BID PO 08/17/24 21:00 09/16/24 20:59 08/18/24 09:16 12.5 MG Spironolactone (Aldactone 25mg) 25 mg DAILY PO 08/18/24 09:00 09/17/24 08:59 08/18/24 09:16 25 MG DIAGNOSTICS / RADIOLOGY: [ ] ASSESSMENT: [Ascites, POA Hypokalemia, POA Acute kidney injury, POA Elevated troponin (NSTEMI versus Type II CA 2/2 liver cirrhosis), POA Overweight with BMI 32.6 kg/m2 Hyperammonemia, POA] PLAN: Remains admitted to medical floor Status post successful paracentesis replace electrolytes IV per protocol Follow cardiology recommendation terms of elevated troponin Continue patient on aspirin 81 mg daily, we will start beta gera with met oprolol 12.5 mg p.o. b.i.d., atorvastatin 20 mg at HS Continue lactulose 20 g b.i.d. due to elevated ammonia A.m. labs GI prophylaxis with famotidine 20 mg p.o. b.i.d. VTE prophylaxis with SCDs AARON VIRGEN MD Aug 18, 2024 13:10
--- NOTE | 2024-08-18 14:10 | NUR ---
DCP Pt awake, alert, oriented X3 lives with sister Neetu Cee [phone]. PCP is Bart Fraga. Pt has a cane, walker, and wheelchair. States he's independent able to do ADLs. Anticipates discharge for home. Addendum: 08/18/24 at 1412 by SHILPI RICH RN CM Amended: Links added.
[2024-08-18 14:39] LABS: BF LYMPHOCYTE 33 %; BF MONOCYTE 59 %; BF TOTAL CELLS COUNTED 100
[2024-08-18] MEDS ORDERED: PoTASSium chloRIDE 20MEQ/100ML 100 ML IV PRN (15:00)
[2024-08-18] MEDS ORDERED: PoTASSium chl 10% ELIXIR 20MEQ 20 MEQ/15 ML UDCUP PO PRN (15:00)
[2024-08-18] MEDS: PoTASSium chloRIDE 20MEQ ER 20 MEQ ERTAB PO PRN (15:22)
[2024-08-19] VITALS (8 sets, daily range): BP systolic 118–147; BP diastolic 64–84; PULSE 58–65; RESP 16–20; TEMP 98.1–98.7; O2SAT 99
[2024-08-19] MEDS: MAGNESIUM 2GM PREMIX 50ML 50 ML IV PRN (02:36)
[2024-08-19 05:18] LABS: MEAN CORPUSCULAR HEMOGLOBIN 33.9 pg (27.0-33.0); MEAN CORPUSCULAR HGB CONC 33.9 g/dL (32.0-36.0); RED BLOOD CELL COUNT(AUTO) 2.3 MIL/uL (4.50-6.20); RED CELL DISTRIBUTION WIDTH 15.1 % (11.0-15.5); WHITE BLOOD COUNT (AUTO) 3.7 K/uL (4.8-10.8)
[2024-08-19 05:30] LABS: ALBUMIN 1.8 g/dL (3.5-5.0); BILIRUBIN,TOTAL 1.3 mg/dL (0.2-1.0); CREATININE 1.3 mg/dL (0.5-1.3); MAGNESIUM 2.3 mg/dL (1.80-2.40); POTASSIUM 3.7 mmol/L (3.5-5.1); TOTAL PROTEIN, SERUM 4.7 g/dL (6.0-8.3)
--- NOTE | 2024-08-19 13:30 | NUR ---
PT REFUSED IV LASIX. STATED WILL WAIT TILL DR PROMISE CARMICHAEL.
--- NOTE | 2024-08-19 14:59 | PN ---
[facility] PROGRESS NOTE Date of Service: Aug 19, 2024 Time of Service: 14:57 SUBJECTIVE: 08/18/24 patient is seen and examined, awake, following commands. BP 150/60, afebrile, saturating normal on room air. Hemoglobin 8.2, hematocrit 241. Ultrasound-guided paracentesis done, removal of 4 L done, tolerated the procedure well. No acute complications noted. 08/19/24 patient is seen and examined, no acute events overnight, BP 147/84, afebrile, saturating normal on room air, no chest pain, shortness shortness for breath, no nausea, no vomiting. CBC shows hemoglobin 7.8, hematocrit 23.0, platelet count of 85. Potassium 3.7. We will monitor patient for additional 24 hours, if hemoglobin stable and electrolytes stable, plan to discharge home over the weekend. Discussed with the patient. Body fluid culture from paracentesis negative. REVIEW OF SYSTEMS CONSTITUTIONAL: Denies fevers, chills, or night sweats. No unintentional weight loss reported. NEUROLOGICAL: Denies headache, amaurosis fugax, motor weakness, sensory deficit, vertigo/spinning sensation, gait abnormalities, or tremors. ENT: No hearing loss, otalgia, otorrhea, rhinitis, rhinorrhea, hoarseness, or sore throat. CARDIOVASCULAR: Denies any exertional angina, dyspnea on exertion, orthopnea, paroxysmal nocturnal dyspnea, palpitations, life-threatening arrhythmias, claudication. PULMONARY: Denies any shortness of breath, cough, phlegm/sputum, hemoptysis, pleuritic chest pain. SLEEP: Denies morning headaches, daytime somnolence or napping. Denies difficulty falling asleep, staying asleep, waking from sleep. Denies knowledge of snoring. GASTROINTESTINAL: Denies any type of dysphagia to either liquids or solids. Denies nausea, vomiting, pyrosis, early satiety, abdominal pain, diarrhea, constipation, or changes in stool consistency or caliber. Denies coffee-ground emesis, hematemesis, hematochezia, or melanotic stools. Reported of feeling bloated. GENITOURINARY: Denies frequency, urgency, nocturia, hematuria or incontinence (Storage/Irritative symptoms.) Low urinary stream, straining to void, urinary intermittency or hesitancy, splitting of the voiding stream, terminal dribbling. ENDOCRINOLOGIC: Denies polyuria, polydipsia, polyphagia or heat/cold intolerances. HEMATOLOGIC: Denies thrombophilia/previous clots, or coagulopathy/bleeding disorders. ONCOLOGIC: Denies personal history of malignancy. DERMATOLOGIC: Denies rashes or pruritus. PSYCHIATRIC: Denies any suicidal or homicidal ideation. Denies hallucinations. PHYSICAL EXAM GENERAL APPEARANCE: The patient is awake, alert, and oriented, in no acute cardiopulmonary distress. NEUROLOGICAL: Cranial nerves II-XII grossly intact. Motor is 5/5 in bilateral upper and lower extremities proximal to distal. No sensory deficits. HEENT: Face is symmetric. Pupils are equal and reactive. Extraocular movements are intact. NECK: Supple. No JVD. No thyromegaly. No submental, submandibular, pre- /postauricular, occipital or supraclavicular lymphadenopathy. CHEST: Normal chest expansion. No Telemetry. LUNGS: Diminished bases CARDIOVASCULAR: Regular. S1 and S2 normal. No appreciable rubs, murmurs or gallops. ABDOMEN: Soft, nontender, and distended. There is no rebound, voluntary guarding, or rigidity. : Deferred. No Evangelista. EXTREMITIES: Bilateral lower extremity edema 4+ SKIN: No skin breakdown. Vital Signs (last 8hr) Date Time Temp Pulse Resp B/P (MAP) Pulse Ox O2 Delivery O2 Flow Rate FiO2 08/19/24 11:45 98.4 58 18 147/84 99 Room Air 21 08/19/24 08:00 98.8 59 18 128/71 99 Room Air 21 LABS: Laboratory: Test 08/19/24 05:23 08/19/24 04:38 08/18/24 10:20 08/18/24 03:35 Range/Units Whole Blood Glucose 96 70-110 MG/DL Bedside Glucose Comment Notified Nurse White Blood Count 3.7 L 4.8-10.8 K/uL Red Blood Count 2.30 L 4.50-6.20 MIL/uL Hemoglobin 7.8 L 14.0-18.0 g/dL Hematocrit 23.0 L 42-54 % Mean Corpuscular Volume 100.0 H 79-99 fL Mean Corpuscular Hemoglobin 33.9 H 27.0-33.0 pg Mean Corpuscular Hemoglobin Concent 33.9 32.0-36.0 g/dL Red Cell Distribution Width 15.1 11.0-15.5 % Platelet Count 85 L 130-400 K/uL Mean Platelet Volume 9.7 7.5-10.5 fL Nucleated Red Blood Cells 0.0 0.0-0.19 % Sodium Level 144 136-145 mmol/L Potassium Level 3.7 3.5-5.1 mmol/L Chloride Level 112 H 101-111 mmol/L Carbon Dioxide Level 26 21-32 mmol/L Blood Urea Nitrogen 19 H 7-18 mg/dL Creatinine 1.3 0.5-1.3 mg/dL Glomerular Filtration Rate Calc 63 >90 mL/min Random Glucose 108 H 70-105 mg/dL Total Calcium 7.8 L 8.5-10.1 mg/dL Magnesium Level 2.30 1.80-2.40 mg/dL Total Bilirubin 1.3 H 0.2-1.0 mg/dL Aspartate Amino Transf (AST/SGOT) 55 H 10-37 U/L Alanine Aminotransferase (ALT/SGPT) 19 12-78 U/L Alkaline Phosphatase 154 H 50-136 U/L Total Protein 4.7 L 6.0-8.3 g/dL Albumin 1.8 L 3.5-5.0 g/dL Body Fluid Source ASCITES Body Fluid Volume 4000 mL Body Fluid Color YELLOW LT YELLOW Body Fluid Supernatant Appearance SLIGHTLY CLOUDY CLEAR Body Fluid WBC 73 /cu. mm. Body Fluid RBC 55 /cu. mm. Body Fluid Neutrophils 8.0 % Body Fluid Lymphocytes 33 % Body Fluid Monocytes % 59 % Immature Granulocyte % (Auto) 0.0 0-1 % Neutrophils (%) (Auto) 46.5 40.0-77.0 % Lymphocytes (%) (Auto) 35.8 21.0-51.0 % Monocytes (%) (Auto) 13.0 3.0-13.0 % Eosinophils (%) (Auto) 3.8 0.0-8.0 % Basophils (%) (Auto) 0.9 0.0-5.0 % Neutrophils # (Auto) 1.6 L 1.8-7.7 K/uL Lymphocytes # (Auto) 1.2 1.0-4.8 K/uL Monocytes # (Auto) 0.4 0.1-1.0 K/uL Eosinophils # (Auto) 0.13 0.00-0.70 K/uL Basophils # (Auto) 0.03 0.00-0.20 K/uL Absolute Immature Granulocyte (auto 0.00 0-1 K/uL Direct Bilirubin 0.4 H 0.0-0.3 mg/dL Test 08/17/24 15:48 Range/Units Troponin I High Sensitivity 90 *H 4-75 ng/L Current Medications Medications (Trade) Dose Ordered Sig/Conrado Route PRN Reason Start Time Stop Time Status Last Admin Dose Admin Albumin Human 200 ml @ 0 mls/hr AD IV 08/18/24 11:00 08/20/24 10:59 08/18/24 12:19 0 MLS/HR Aspirin (Aspirin 81mg Chew Tab) 81 mg DAILY PO 08/18/24 09:00 09/17/24 08:59 08/19/24 10:48 81 MG Atorvastatin Calcium (LIPItor 20MG) 20 mg HS PO 08/17/24 21:00 09/16/24 20:59 08/18/24 20:45 20 MG Famotidine (Pepcid 20mg Tab) 20 mg Q24H PO 08/17/24 21:00 09/16/24 20:59 08/18/24 20:45 20 MG Furosemide (LASix 20MG VIAL) 20 mg Q12H IV 08/17/24 13:30 09/16/24 13:29 08/19/24 01:47 20 MG Lactulose (Constulose 20gm/ 30ml Udcup) 20 gm BID PO 08/17/24 21:00 09/16/24 20:59 08/19/24 10:48 20 GM Magnesium Sulfate 50 ml @ 0 mls/hr PROTOCOL PRN IV MAGNESIUM PROTOCOL 08/18/24 15:30 09/17/24 15:29 08/19/24 02:36 50 MLS/HR Metoprolol Tartrate (loprESSOR) 12.5 mg BID PO 08/17/24 21:00 09/16/24 20:59 08/19/24 10:48 12.5 MG Potassium Chloride 100 ml @ 100 mls/hr AD PRN IV POTASSIUM PROTOCOL 08/18/24 15:00 09/17/24 14:59 Potassium Chloride (K-Dur/Klor-Con 20meq) 20 meq AD PRN PO POTASSIUM PROTOCOL 08/18/24 15:00 09/17/24 14:59 08/19/24 10:48 20 MEQ Potassium Chloride (KCl 10% Elixir 20meq/15ml) 20 meq AD PRN PO POTASSIUM PROTOCOL 08/18/24 15:00 09/17/24 14:59 Spironolactone (Aldactone 25mg) 25 mg DAILY PO 08/18/24 09:00 09/17/24 08:59 08/19/24 10:48 25 MG DIAGNOSTICS / RADIOLOGY: [ ] ASSESSMENT: [Ascites, POA Hypokalemia, POA Acute kidney injury, POA Elevated troponin (NSTEMI versus Type II TN 2/2 liver cirrhosis), POA Overweight with BMI 32.6 kg/m2 Hyperammonemia, POA] PLAN: Remains admitted to medical floor Status post successful paracentesis replace electrolytes IV per protocol Follow cardiology recommendation terms of elevated troponin Continue patient on aspirin 81 mg daily, we will start beta gera with metoprolol 12.5 mg p.o. b.i.d., atorvastatin 20 mg at HS Continue lactulose 20 g b.i.d. due to elevated ammonia A.m. labs GI prophylaxis with famotidine 20 mg p.o. b.i.d. VTE prophylaxis with SCDs AARON VIRGEN MD Aug 19, 2024 14:59
[2024-08-19] MEDS: PoTASSium chloRIDE 20MEQ ER 20 MEQ ERTAB PO ONE (15:18)
[2024-08-20 00:01] VITALS: BP 133/78; PULSE 61; RESP 17; TEMP 98.1
[2024-08-20 04:21] VITALS: BP 124/70; PULSE 57; RESP 18; TEMP 98.5
[2024-08-20 08:10] VITALS: O2SAT 99
[2024-08-20 08:23] VITALS: BP 120/65; PULSE 59; RESP 16; TEMP 97.7
[2024-08-20 11:15] VITALS: BP 114/55; PULSE 55; RESP 16; TEMP 97.8
[2024-08-20 12:55] LABS: HEMATOCRIT 24.6 % (42-54); MEAN CORPUSCULAR HEMOGLOBIN 34.4 pg (27.0-33.0); MEAN CORPUSCULAR HGB CONC 33.7 g/dL (32.0-36.0); MEAN CORPUSCULAR VOLUME 102.1 fL (79-99); RED BLOOD CELL COUNT(AUTO) 2.41 MIL/uL (4.50-6.20); RED CELL DISTRIBUTION WIDTH 15.3 % (11.0-15.5); WHITE BLOOD COUNT (AUTO) 3.8 K/uL (4.8-10.8)
[2024-08-20] MEDS ORDERED: ATOR20TA65 PO (13:07)
[2024-08-20] MEDS ORDERED: FURO20TA4 PO (13:07)
[2024-08-20] MEDS ORDERED: SPIR25TA6 PO (13:07)
[2024-08-20] MEDS ORDERED: MULT-1367 PO (13:07)
[2024-08-20] MEDS ORDERED: METO25 PO (13:07)
--- NOTE | 2024-08-20 13:08 | DS ---
Discharge Summary Hospital Course Summary: The patient admitted to the hospital 08/17/2024 with the following history of the present illness: This is a 59-year-old male with past medical history of alcoholic liver cirrhosis who presented to the emergency department with complaints of stomach bloating, bilateral lower extremity edema associated with shortness of breaths. Patient denies any chest pain or palpitations. Patient stated that we would normally get paracentesis for his liver cirrhosis in the last paracentesis that he had was about three months ago. In the emergency department, his initial vitals checked which showed temperature 98.8, respiratory rate 14, BP 134/64, O2 sat 99% on room air. Laboratory data reviewed, WBC 3.6, HGB 8.6, HCT 24.4, PLT 97, Na 144, K 3.3, Cl 112, CO2 29, BUN 19, Crea 1.4, blood sugar 94. Troponin I 89. Patient was referred to the hospitalist for further evaluation and management for possible paracentesis and cardiology consultation for elevated troponin rule out NSTEMI.] 08/18/24 patient is seen and examined, awake, following commands. BP 150/60, a febrile, saturating normal on room air. Hemoglobin 8.2, hematocrit 241. Ultrasound-guided paracentesis done, removal of 4 L done, tolerated the procedure well. No acute complications noted. 08/19/24 patient is seen and examined, no acute events overnight, BP 147/84, afebrile, saturating normal on room air, no chest pain, shortness shortness for breath, no nausea, no vomiting. CBC shows hemoglobin 7.8, hematocrit 23.0, platelet count of 85. Potassium 3.7. We will monitor patient for additional 24 hours, if hemoglobin stable and electrolytes stable, plan to discharge home over the weekend. Discussed with the patient. Body fluid culture from paracentesis negative. Assessment/Plan: Final diagnosis Ascites, POA Hypokalemia, POA Acute kidney injury, POA Elevated troponin (NSTEMI versus Type II [place] 2/2 liver cirrhosis), POA Overweight with BMI 32.6 kg/m2 Hyperammonemia, POA Discharge Instructions: Patient to be discharged home today, to follow up with PCP as an outpatient and return to the hospital if condition changes, patient agreed with the plan and understood the information provided. Home Medications: Active Scripts Ciprofloxacin HCl (Cipro) 250 Mg Tablet, 250 MG PO BID for 7 Days, #14 TAB Prov:MAURICE DIAMOND MD 08/11/22 Time spent arranging discharge: 31-60 minutes AARON VIRGEN MD Aug 20, 2024 13:08
== END 2024-08-20 15:32 | disposition home or self-care (01) | DRG 432 ==
LOC: EDH 09:24 → EDHIP 11:53 → 4AH 17:55
PROVIDERS: ADMIT Internal Medicine; ATTEND Internal Medicine
PROC: 0W9G3ZZ Drainage of Peritoneal Cavity, Percutaneous Approach (ICD-10-PCS; principal; 2024-08-18)
DX: K70.31 Alcoholic cirrhosis of liver with ascites (principal); I21.A1 Myocardial infarction type 2; N17.9 Acute kidney failure, unspecified; E87.6 Hypokalemia; E66.01 Morbid (severe) obesity due to excess calories; Z68.32 Body mass index [BMI] 32.0-32.9, adult; D64.9 Anemia, unspecified; D69.6 Thrombocytopenia, unspecified; E03.9 Hypothyroidism, unspecified; E78.00 Pure hypercholesterolemia, unspecified; E88.09 Other disorders of plasma-protein metabolism, not elsewhere classified; I10 Essential (primary) hypertension; I25.10 Atherosclerotic heart disease of native coronary artery without angina pectoris; Z79.899 Other long term (current) drug therapy; Z91.199 Patient's noncompliance with other medical treatment and regimen due to unspecified reason
CPT/HCPCS: 36415; 49083; 80048; 80053; 80061; 80076; 82140; 82948; 83036; 83735; 83880; 84484; 85025; 85027; 85610; 85730; 87071; 87205; 89051; 93005; 93306; 93356; 99285; C1729; G0378; J1940; J3475; P9046